=== PATIENT | female | born 1960 | race Caucasian/White ===

== ENCOUNTER 2021-02-03 22:47 | Emergency (ER) | payer BC ==
[~2021-02-03] VITALS: Ht 149.9 cm; Wt 62.6 kg
[~2021-02-03 22:47] MED LIST: ALBU17AE23 INH; ASP81CT PO; CPR250T; FEXO180T84 PO; FLUT16SP22 NS; FLUT50DI; LVST20T; NIACIN; OMG1KC
[2021-02-03 23:00] VITALS: BP 159/79
[2021-02-03 23:14] LABS: BILIRUBIN,URINE NEGATIVE (NEGATIVE); CLARITY,URINE CLEAR; COLOR,URINE YELLOW; GLUCOSE, URINE (UA) NEGATIVE (NEGATIVE); KETONES,URINE NEGATIVE (NEGATIVE); LEUKOCYTE ESTERASE ,URINE NEGATIVE (NEGATIVE); NITRITE,URINE NEGATIVE (NEGATIVE); PH,URINE 5.5 (5-9); PROTEIN,URINE NEGATIVE (NEGATIVE)
[2021-02-03 23:22] LABS: BACTERIA,URINE NEGATIVE /HPF; RBC,URINE 0-2 /HPF
--- NOTE | 2021-02-03 23:23 | ED Abdominal Pain ---
General Chief Complaint: Abdominal/GI Problems Stated Complaint: PELVIC PAIN Nursing Triage Note: Pt arrives via POV from home for c/o lower ABD/pelvic pain; onset week ago. Pt reports no BM in one week; also reports nausea without vomiting. Pt denies urinary changes. Source of Information: Patient History of Present Illness Date Seen by Provider: Feb 03, 2021 Time Seen by Provider: 23:05 Initial Comments PT ARRIVES VIA POV FROM HOME C/O LOW ABDOMINAL PAIN/PELVIC PAIN X 1 WEEK, WORSE TODAY C/O NAUSEA, NO VOMITING C/O DECREASED APPETITE--HAD BISCUITS AND GRAVY THIS AM FOR BREAKFAST, NOTHING ELSE TO EAT TODAY. HAS BEEN DRINKING FLUIDS AND ARRIVES DRINKING BOTTLE OF WATER HAS NOT HAD A BM IN OVER A WEEK--JUST PASSING SMALL AMOUNTS OF MUCOUS HAS URGE TO HAVE A BM, BUT ONLY PASSES MUCOUS C/O MUCH CRAMPING ON URINATION AND GOING SMALL AMOUNTS, BUT NO BURNING ON URINATION PAIN IMPROVES ON STANDING, NOTHING WORSENS PAIN NO RADIATION OF PAIN HAS NOT TAKEN ANYTHING FOR PAIN AT ANY TIME. HAS APPLIED SALON PAS PATCHES TO AREA, WITHOUT RELIEF PT SAW PATTERN HAND AT [facility] YESTERDAY FOR THIS PROBLEM--NO TESTS OF ANY KIND WERE DONE AND NO RX'S GIVEN. REFERRED TO DR. PACE, SURGEON. PT HAS AN APPOINTMENT WITH HER TOMORROW MORNING FOR THIS PROBLEM PT HAS HAD HYSTERECTOMY/BSO PT STATES SHE HAS HAD SAME SYMPTOMS IN THE PAST AND HAD URETHRAL DILATION BY DR. SPEARS SEVERAL YEARS AGO. NO PROBLEMS SINCE THEN PCP: [facility] Allergies and Home Medications Allergies Coded Allergies: No Known Drug Allergies (Verified Allergy, Unknown, 11/16/06) Patient Home Medication List Home Medication List Reviewed: Yes Ciprofloxacin HCl (Ciprofloxacin HCl) 500 Mg Tablet, 500 MG PO BID Prescribed by: RANDY ALCAZAR on 02/04/21 0146 Dicyclomine HCl (Dicyclomine HCl) 20 Mg Tablet, 20 MG PO Q6H Prescribed by: RANDY ALCAZAR on 02/04/21 014 Fexofenadine HCl (Tiff Allergy) 180 Mg Tablet, 180 MG PO DAILY, (Reported) Entered as Reported by: RACHEL RUBALCAVA on 11/02/142048 L. Acidophilus/Pectin, Hood (Acidophilus Capsule) 1 Each Capsule, 2 EACH PO QID Prescribed by: RANDY ALCAZAR on 02/04/21145 Metronidazole (Metronidazole) 500 Mg Tablet, 500 MG PO QID Prescribed by: RANDY ALCAZAR on 02/04/21145 Tramadol HCl (Ultram) 50 Mg Tablet, 50 MG PO Q4H Prescribed by: RANDY ALCAZAR on 02/04/21145 Review of Systems Review of Systems Constitutional: no symptoms reported EENTM: No Symptoms Reported Respiratory: No Symptoms Reported Cardiovascular: No Symptoms Reported Gastrointestinal: See HPI, Abdominal Pain, Constipated, Nausea; Denies Rectal Bleeding, Denies Vomiting Genitourinary: See HPI Musculoskeletal: no symptoms reported Skin: no symptoms reported Psychiatric/Neurological: No Symptoms Reported Endocrine: No Symptoms Reported Hematologic/Lymphatic: No Symptoms Reported Past Rlosokz-Vozvzg-Qimnag Hx Patient Social History Tobacco Use?: Yes Tobacco type used: Cigarettes Smoking Status: Former Smoker Use of E-Cig and/or Vaping dev: No Substance use?: No Alcohol Use?: Yes Alcohol Frequency: Rarely Pt feels they are or have been: No Immunizations Up To Date Influenza Vaccine Up-to-Date: No; Not Current COVID19 Vaccine Lead Software Development Engineer: Kiwigrid Seasonal Allergies Seasonal Allergies: Yes Past Medical History Surgeries: Yes Adenoidectomy, Bladder Surgery, Ear Surgery, Hysterectomy, Oophorectomy, Tonsillectomy Respiratory: No Cardiac: Yes High Cholesterol Neurological: No 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 SPEARS Physical Exam Vital Signs Vital Signs - First Documented 02/03/21 23:00 Temp 36.8 Pulse 68 Resp 18 B/P (MAP) 159/79 (105) Pulse Ox 98 O2 Delivery Room Air Capillary Refill : Less Than 3 Seconds Height/Weight/BMI Height: 4'11" Weight: 127lbs. oz. 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, no motor/sensory deficits, alert, normal mood/affect, oriented x 3 Skin: normal color (VERY PRUITT), warm/dry Progress/Results/Core Measures Results/Orders Lab Results Laboratory Tests Test 02/03/21 23:05 02/03/21 23:30 Range/Units Urine Color YELLOW Urine Clarity CLEAR Urine pH 5.5 5-9 Urine Specific [place] >=1.030 1.016-1.022 Urine Protein NEGATIVE NEGATIVE Urine Glucose (UA) NEGATIVE NEGATIVE Urine Ketones NEGATIVE NEGATIVE Urine Nitrite NEGATIVE NEGATIVE Urine Bilirubin NEGATIVE NEGATIVE Urine Urobilinogen 0.2 < = 1.0 MG/DL Urine Leukocyte Esterase NEGATIVE NEGATIVE Urine RBC (Auto) 1+ H NEGATIVE Urine RBC 0-2 /HPF Urine WBC NONE /HPF Urine Squamous Epithelial Cells 5-10 /HPF Urine Crystals NONE /LPF Urine Bacteria NEGATIVE /HPF Urine Casts NONE /LPF Urine Mucus SMALL H /LPF Urine Culture Indicated NO White Blood Count 10.3 4.3-11.0 10^3/uL Red Blood Count 4.48 3.80-5.11 10^6/uL Hemoglobin 13.6 11.5-16.0 g/dL Hematocrit 40 35-52 % Mean Corpuscular Volume 89 80-99 fL Mean Corpuscular Hemoglobin 30 25-34 pg Mean Corpuscular Hemoglobin Concent 34 32-36 g/dL Red Cell Distribution Width 12.4 10.0-14.5 % Platelet Count 345 130-400 10^3/uL Mean Platelet Volume 10.4 9.0-12.2 fL Immature Granulocyte % (Auto) 0 % Neutrophils (%) (Auto) 70 42-75 % Lymphocytes (%) (Auto) 20 12-44 % Monocytes (%) (Auto) 6 0-12 % Eosinophils (%) (Auto) 3 0-10 % Basophils (%) (Auto) 1 0-10 % Neutrophils # (Auto) 7.2 1.8-7.8 10^3/uL Lymphocytes # (Auto) 2.0 1.0-4.0 10^3/uL Monocytes # (Auto) 0.6 0.0-1.0 10^3/uL Eosinophils # (Auto) 0.3 0.0-0.3 10^3/uL Basophils # (Auto) 0.1 0.0-0.1 10^3/uL Immature Granulocyte # (Auto) 0.0 0.0-0.1 10^3/uL Sodium Level 138 135-145 MMOL/L Potassium Level 3.5 L 3.6-5.0 MMOL/L Chloride Level 107 98-107 MMOL/L Carbon Dioxide Level 20 L 21-32 MMOL/L Anion Gap 11 5-14 MMOL/L Blood Urea Nitrogen 18 7-18 MG/DL Creatinine 0.94 0.60-1.30 MG/DL Estimat Glomerular Filtration Rate 60 BUN/Creatinine Ratio 19 Glucose Level 122 H 70-105 MG/DL Calcium Level 9.2 8.5-10.1 MG/DL Corrected Calcium 9.0 8.5-10.1 MG/DL Total Bilirubin 0.6 0.1-1.0 MG/DL Aspartate Amino Transf (AST/SGOT) 24 5-34 U/L Alanine Aminotransferase (ALT/SGPT) 22 0-55 U/L Alkaline Phosphatase 45 40-136 U/L Total Protein 7.0 6.4-8.2 GM/DL Albumin 4.3 3.2-4.5 GM/DL Amylase Level 48 25-125 U/L Lipase 24 8-78 U/L My Orders Orders - RANDY ALCAZAR DO Ua Culture If Indicated (02/03/21 22:55) Ed Iv/Invasive Line Start (02/03/21 23:16) Amylase (02/03/21 23:16) Cbc With Automated Diff (02/03/21 23:16) Comprehensive Metabolic Panel (02/03/21 23:16) Lipase (02/03/21 23:16) Ed Iv/Invasive Line Start (02/03/21 23:16) Ondansetron Injection (Zofran Injectio (02/03/21 23:30) Ed Iv/Invasive Line Start (02/03/21 23:16) Lactated Ringers (Lr 1000 Ml Iv Solution (02/03/21 23:30) Ct Abd/Pelvis Wo(Kidney Stone) (02/03/21 23:37) Acute Abd Series (02/03/21 23:37) Ciprofloxacin Tablet (Cipro Tablet) (02/04/21 01:45) Metronidazole Tablet (Flagyl Tablet) (02/04/21 01:45) Rx-Dicyclomine Capsule (Rx-Bentyl Capsul (02/04/21 01:42) Rx-Tramadol Hcl (Rx-Ultram) (02/04/21 01:42) Medications Given in ED Current Medications Medications Dose Ordered Sig/Avtar Route Start Time Stop Time Status Last Admin Dose Admin Lactated Ringer's 1,000 ml @ 0 mls/hr Q0M ONCE IV 02/03/21 23:30 02/03/21 23:31 DC 02/03/21 23:33 1,000 MLS/HR Metronidazole 500 mg ONCE ONCE PO 02/04/21 01:45 02/04/21 01:46 DC 02/04/21 01:52 500 MG Ondansetron HCl 4 mg ONCE ONCE IVP 02/03/21 23:30 02/03/21 23:31 DC 02/03/21 23:33 4 MG Vital Signs/I&O 02/03/21 23:00 Temp 36.8 Pulse 68 Resp 18 B/P (MAP) 159/79 (105) Pulse Ox 98 O2 Delivery Room Air Blood Pressure Mean: 105 Progress Progress Note : Progress Note GIVEN IV FLUIDS AND ZOFRAN PAIN AND NAUSEA COMPLETELY RESOLVED AT DISMISSAL MUCH DELAY IN OBTAINING CT REPORT Diagnostic Imaging Comments ABDOMEN XRAYS--NO ACUTE PROCESS, PENDING RADIOLOGIST REVIEW CT ABDOMEN/PELVIS--MURAL THICKENING OF SIGMOID COLON WITH ADJACENT FAT STRANDING, CONSISTENT WITH COLITIS. MODERATE SOLID STOOL IN COLON INCLUDING SIGMOID COLON, PROXIMAL TO REGION OF WORST MURAL THICKENING. -PER STAT RAD VIA FAX AT [id number] Reviewed: Reviewed by Me Departure Impression Primary Impression: Colitis Disposition: HOME, SELF-CARE Condition: Improved Departure-Patient Inst. Decision time for Depature: 01:40 Referrals: LEW KRAFT MD (PCP/Family) Primary Care Physician JERONIMO PACE DO Patient Instructions: Colitis (DC) Add. Discharge Instructions: CLEAR LIQUIDS--WATER, BROTH, JELLO, GATORADE NO FOOD UNTIL YOU ARE RECHECKED AND CLEARED BY DRKeven KEEP YOUR APPOINTMENT WITH DR. SANJEEV TOMORROW All discharge instructions reviewed with patient and/or family. Voiced understanding. Scripts Tramadol HCl (Ultram) 50 Mg Tablet 50 MG PO Q4H for Pain, #20 TAB Prov: RANDY ALCAZAR DO 02/04/21 Dicyclomine HCl (Dicyclomine HCl) 20 Mg Tablet 20 MG PO Q6H for Abdominal Pain, #20 TAB Prov: RANDY ALCAZAR DO 02/04/21 L. Acidophilus/Pectin, Hood (Acidophilus Capsule) 1 Each Capsule 2 EACH PO QID, #40 CAP Prov: RANDY ALCAZAR DO 02/04/21 Metronidazole (Metronidazole) 500 Mg Tablet 500 MG PO QID, #28 TAB 0 Refills Prov: RANDY ALCAZAR DO 02/04/21 Ciprofloxacin HCl (Ciprofloxacin HCl) 500 Mg Tablet 500 MG PO BID, #14 TAB Prov: RANDY ALCAZAR DO 02/04/21 RANDY ALCAZAR DO Feb 03, 2021 23:23
[2021-02-03] MEDS ORDERED: ONDANSETRON 4 MG/2 ML (SDV) Z0FRAN IVP ONE (23:30)
[2021-02-03] MEDS ORDERED: LACTATED RINGERS 1,000 ML IV ONE (23:30)
[2021-02-03 23:37] LABS: BASOPHILS # (AUTO) 0.1 10^3/uL (0.0-0.1); BASOPHILS % (AUTO) 1 % (0-10); EOSINOPHILS # (AUTO) 0.3 10^3/uL (0.0-0.3); EOSINOPHILS % (AUTO) 3 % (0-10); HEMATOCRIT 40 % (35-52); HEMOGLOBIN 13.6 g/dL (11.5-16.0); LYMPHOCYTES % (AUTO) 20 % (12-44); MEAN CORPUSCULAR HEMOGLOBIN 30 pg (25-34); MEAN CORPUSCULAR HGB CONC 34 g/dL (32-36); MEAN CORPUSCULAR VOLUME 89 fL (80-99); MEAN PLATELET VOLUME 10.4 fL (9.0-12.2); MONOCYTES # (AUTO) 0.6 10^3/uL (0.0-1.0); MONOCYTES % (AUTO) 6 % (0-12); NEUTROPHILS # (AUTO) 7.2 10^3/uL (1.8-7.8); NEUTROPHILS % (AUTO) 70 % (42-75); PLATELET COUNT 345 10^3/uL (130-400); WHITE BLOOD COUNT 10.3 10^3/uL (4.3-11.0)
[2021-02-03 23:47] LABS: ALBUMIN 4.3 GM/DL (3.2-4.5)
[2021-02-03 23:48] LABS: POTASSIUM 3.5 MMOL/L (3.6-5.0)
[2021-02-03 23:49] LABS: CALCIUM 9.2 MG/DL (8.5-10.1)
[2021-02-03 23:52] LABS: BILIRUBIN,TOTAL 0.6 MG/DL (0.1-1.0)
[2021-02-03 23:54] LABS: CREATININE SERUM 0.94 MG/DL (0.60-1.30)
[2021-02-04] MEDS ORDERED: RX-DICYCLOMINE 10 MG (BENTYL) CAP PPK#4 PO STA (01:42)
[2021-02-04] MEDS ORDERED: CIPROFLOXACIN 500 MG (CIPRO) TABLET PO SCH (01:45)
[2021-02-04] MEDS ORDERED: metroNIDAZOLE 500 MG (FLAGYL) TAB PO ONE (01:45)
[2021-02-04] MEDS ORDERED: CIPR500T5 PO (01:46)
[2021-02-04] MEDS ORDERED: TRAM-42 PO (01:46)
[2021-02-04] MEDS ORDERED: L. A1CAP11 PO (01:46)
[2021-02-04] MEDS ORDERED: DICY20TA PO (01:46)
[2021-02-04] MEDS ORDERED: METR-145 PO (01:46)
--- NOTE | 2021-02-04 03:20 | Diagnostic Imaging Report ---
PROCEDURE: CT urinary tract, rule out kidney stone. TECHNIQUE: Multiple contiguous axial images were obtained through the abdomen and pelvis without the use of intravenous contrast. Auto Exposure Controls were utilized during the CT exam to meet ALARA standards for radiation dose reduction. INDICATION: Abdominal pain The lung bases are clear. Liver appears normal. The gallbladder appears normal. The pancreas appears normal. Spleen appears normal. Kidneys and adrenals appear normal. Small bowel is not dilated. There is moderate fecal stasis. Uterus is surgically absent. Urinary bladder appears normal. There is calcific atherosclerosis of aorta but no aneurysm. There is no intraperitoneal free air or free fluid. The appendix is normal. IMPRESSION: Fecal stasis. No acute abnormality seen. Dictated by: Dictated on workstation # [id number]
--- NOTE | 2021-02-04 03:34 | Diagnostic Imaging Report ---
Indication: Abdominal pain PA chest, supine and upright abdominal images are obtained Lung bases are clear. Bowel gas pattern is normal. There is large amount of retained stool in the colon. There are no pathologic masses or calcifications. IMPRESSION: Fecal stasis Dictated by: Dictated on workstation # [id number]
== END 2021-02-04 02:02 | disposition home or self-care (01) ==
LOC: EDUNIT# 22:47 → ER 22:50
DX: K52.9 Noninfective gastroenteritis and colitis, unspecified (principal); K21.9 Gastro-esophageal reflux disease without esophagitis; Z90.710 Acquired absence of both cervix and uterus; Z90.722 Acquired absence of ovaries, bilateral; Z87.891 Personal history of nicotine dependence
CPT/HCPCS: 36415; 74022; 74176; 80053; 81000; 82150; 83690; 85025

== ENCOUNTER → 2022-03-08 | Outpatient (CLI) | payer BC, OTHER ==
[~2022-03-08] MED LIST changes: +CATHETER FLUSH 10 ML SYR IVP PRN; +CIPR500T5 PO; +DICY20TA PO; +L. A1CAP11 PO; +METR-145 PO; +TRAM-42 PO
[2022-03-08 08:58] VITALS: BP 155/80
--- NOTE | 2022-03-08 10:57 | Cardiology Stress Test Report ---
Stress Test Report Date of Procedure/Referring: Date of Procedure: Mar 08, 2022 PCP Sudeep Krfat MD Admitting Physician Admitting Physician: Attending Physician: Katie Mathur MD Indications: HTN Baseline Heart Rate: 61 Baseline Blood Pressure: Blood Pressure Systolic: 155 Blood Pressure Diastolic: 80 Vital Signs Date Time Temp Pulse Resp B/P (MAP) Pulse Ox O2 Delivery O2 Flow Rate FiO2 03/08/22 08:58 61 155/80 (105) Baseline Vital Signs Vital Signs Date Time Temp Pulse Resp B/P (MAP) Pulse Ox O2 Delivery O2 Flow Rate FiO2 03/08/22 08:58 61 155/80 (105) Baseline EKG: Baseline EKG: NSR Summary: After explaining the procedure and details to the patient, she signed the c onsent and was brought to the stress nuclear laboratory. Patient exercised on standard [place] protocol, EKG, heart rate and blood pressure were monitored continuously, resting and stress doses of radio tracer were injected, imaging was acquired and reviewed in the short axis, horizontal long axis and vertical long axis views Patient was able to exercise for a total of 6.30 minutes on [place] protocol, METs 7.7 Maximum heart rate 143 Maximum blood pressure 132/68 Stress EKG, Minimal nondiagnostic changes Recovery EKG, Return to baseline TID: 0.9 SSS: 1 SDS: 1 EF: 80 Conclusion: 1. Fair exercise tolerance for a total of 7 minutes and 30 seconds on standard [place] protocol, 7.7 METS achieving 91% of maximal expected heart rate 2. Appropriate heart rate and blood pressure response to exercise return to baseline during recovery 3. Nondiagnostic EKG changes with exercise return to baseline during recovery 4. No significant ischemia or infarction noted on SPECT images 5. Normal left ventricular size, ejection fraction 80% Copy Copies To 1: SUDEEP KRAFT MD, BASHAR J MD Mar 08, 2022 10:57
== END ==
LOC: CARD 07:06
PROVIDERS: ATTEND Internal Medicine Cardiovascular Disease
DX: I10 Essential (primary) hypertension (principal); I25.10 Atherosclerotic heart disease of native coronary artery without angina pectoris
CPT/HCPCS: 78452; 93017